=== PATIENT | male | born 1990 | race Caucasian/White ===

== ENCOUNTER 2020-03-06 08:53 | Outpatient (CLI) | payer OTHER ==
--- NOTE | 2020-03-06 17:46 | MRI Report ---
PROCEDURE: Cervical Spine W/O INDICATIONS: CERVICALGIA TECHNIQUE: Noncontrast sagittal T1 spin echo and T2 fast spin echo, sagittal STIR, foraminal oblique sagittal T2 fast spin echo, and axial gradient echo or T2 fast spin echo through the cervical spine. COMPARISON: None. FINDINGS: Image quality: Excellent. Alignment and Curvature: There is normal bony alignment. Bone Marrow: Marrow demonstrates normal overall signal. Spinal Cord: Visualized spinal cord has normal size and signal. No cerebellar tonsillar herniation. Paraspinous Soft Tissues: No paravertebral masses. Prevertebral soft tissues are normal in thicknes s. C2-C3: Normal in appearance. C3-C4: Loss of disc signal. No central stenosis. No neural foraminal narrowing. No neural compressi on. C4-C5: Loss of disc signal. No central stenosis. No neural foraminal narrowing. No neural compressio n. C5-C6: Loss of disc signal., Diffuse disc bulge. Small left central disc protrusion. No central sten osis. No neural foraminal narrowing. No neural compression. C6-C7: Loss of disc signal. Mild, diffuse disc bulge. Mild bilateral uncovertebral joint hypertrophy . Mild narrowing of the central canal. Severe bilateral neural foraminal narrowing with compression o f the exiting bilateral C7 nerve roots. C7-T1: Normal in appearance. IMPRESSION: 1. Mild multilevel degenerative disease. 2. Mild bilateral C6-C7 uncovertebral joint hypertrophy. 3. No central stenosis. 4. Severe bilateral C6-C7 neural foraminal narrowing with compression of the exiting bilateral C7 ner ve roots. Please correlate with clinical data. Reviewed by: Louise Meléndez MD, PhD on 03/06/2020 4:45 PM AKJOSE CARLOS Approved by: Louise Meléndez MD, PhD on 03/06/2020 4:45 PM AKDT Station ID: [id number]
== END 2020-03-06 08:54 | disposition home or self-care (01) ==
LOC: DI 08:53
PROVIDERS: ATTEND Student in an Organized Health Care Education/Training Program
DX: M50.222 Other cervical disc displacement at C5-C6 level (principal); M50.323 Other cervical disc degeneration at C6-C7 level; M48.02 Spinal stenosis, cervical region; M89.38 Hypertrophy of bone, other site
CPT/HCPCS: 72141